=== PATIENT | male | born 1980 | race Caucasian/White ===

== ENCOUNTER → 2017-06-06 | Outpatient (CLI) | payer OTHER ==
[2017-06-09 00:06] LABS: Lyme Disease IgG/IgM Antibodie <0.91 ISR (0.00-0.90); Lyme Disease IgM Ab Quantitati <0.80 index (0.00-0.79)
== END ==
LOC: M WUC 14:46
PROVIDERS: ATTEND Emergency Medicine
DX: S20.369 Insect bite (nonvenomous) of unspecified front wall of thorax (principal); W18.30XD Fall on same level, unspecified, subsequent encounter; Y92.009 Unspecified place in unspecified non-institutional (private) residence as the place of occurrence of the external cause

== ENCOUNTER → 2017-08-14 | Outpatient (REF) | payer OTHER | LOC: M SMT 13:16 | DX: Z30.09 Encounter for other general counseling and advice on contraception (principal) ==

== ENCOUNTER → 2017-09-26 | Outpatient (REF) | payer OTHER ==
[2017-09-26 15:22] LABS: MOTILE SPERM ABSENT (ABSENT); SEMEN APPEARANCE OPAQUE (OPAQUE); SEMEN VISCOSITY LIQUID (LIQUID); SEMEN VOLUME 2.3 ml (4.0-5.0); SEMEN pH 8.5 (7.0-8.0); SPERM ABNORMAL FORMS WBC'S NOTED; WBC CONCENTRATION <=1 M/ml (<=1 M/ml)
[2017-09-26 15:23] LABS: IMMMOTILE SPERM CENTRIFUGED ABSENT (ABSENT); IMMOTILE SPERM ABSENT (ABSENT); MOTILE SPERM CENTRIFUGED ABSENT (ABSENT)
== END ==
LOC: M SMT 15:07
DX: Z30.09 Encounter for other general counseling and advice on contraception (principal)

== ENCOUNTER → 2018-01-13 | Outpatient (CLI) | payer OTHER ==
[2018-01-13 14:02] LABS: HEPATITIS B SURFACE ANTIBODY NEGATIVE (POSITIVE)
[2018-01-13 14:38] LABS: HEPATITIS C VIRUS ABY INDEX 0.1 INDEX (<0.8)
[2018-01-13 14:39] LABS: HIV 1&2 SCREEN CENTAUR NEGATIVE (NEGATIVE)
[2018-01-13 14:40] LABS: HEPATITIS A ANTIBODY IGM NEGATIVE (NEGATIVE)
== END ==
LOC: M WUC 09:22
DX: S61.233D Puncture wound without foreign body of left middle finger without damage to nail, subsequent encounter (principal); W27.3XXD Contact with needle (sewing), subsequent encounter
CPT/HCPCS: 86706